=== PATIENT | female | born 1980 | race American Indian/Alaskan Native ===

== ENCOUNTER 2016-10-24 14:39 | Emergency (ER) | payer MEDICAID ==
[2016-10-24 15:18] VITALS: BP 106/69
== END 2016-10-24 18:53 | disposition left against medical advice (07) ==
LOC: ED 14:39
DX: R51 Headache (principal); Z53.21 Procedure and treatment not carried out due to patient leaving prior to being seen by health care provider; W06.XXXA Fall from bed, initial encounter; Y93.9 Activity, unspecified; Y92.9 Unspecified place or not applicable; Y99.9 Unspecified external cause status

== ENCOUNTER 2016-11-03 11:30 | Emergency (ER) | payer MEDICAID ==
--- NOTE | 2016-11-03 16:07 | Emergency Department Report ---
- General Chief Complaint: Upper Respiratory Infection Stated Complaint: SEVERE PAIN Time Seen by Provider: 11/03/16 15:25 Source: patient Mode of arrival: Ambulatory Limitations: No Limitations - History of Present Illness Initial Comments: Patient presents with head congestion, sore throat, headache. She states she has had these symptoms in the past and has had diagnosis of sinusitis. MD Complaint: rhinorrhea, nasal congestion, sinus pain -: Gradual, days(s) (3) Severity: moderate Severity scale (0 -10): 7 Improves With: nothing Context: sick contacts Associated Symptoms: headache, nasal congestion, sore throat, cough - Related Data Previous Rx's Medication Instructions Recorded Last Taken Type Amoxicillin/K Clav Tab [Augmentin 1 tab PO Q12HR #20 tab 11/03/16 Unknown Rx 875 mg] Allergies Allergy/AdvReac Type Severity Reaction Status Date / Time No Known Allergies Allergy Unverified 10/24/16 15:13 ED Review of Systems ROS: Stated complaint: SEVERE PAIN Other details as noted in HPI Constitutional: denies: chills, fever ENT: throat pain, congestion. denies: ear pain Respiratory: cough. denies: shortness of breath, wheezing Cardiovascular: denies: chest pain, palpitations Gastrointestinal: denies: abdominal pain, nausea, diarrhea Musculoskeletal: denies: back pain, joint swelling, arthralgia Skin: denies: rash, lesions Neurological: headache ED Past Medical Hx - Past Medical History Previous Medical History?: Yes Hx Asthma: Yes Additional medical history: blood clots - Surgical History Additional Surgical History: gallstones - Social History Smoking Status: Never Smoker Substance Use Type: None - Medications Home Medications: Home Medications Medication Instructions Recorded Confirmed Last Taken Type Amoxicillin/K Clav Tab [Augmentin 1 tab PO Q12HR #20 tab 11/03/16 Unknown Rx 875 mg] ED Physical Exam - General Limitations: No Limitations General appearance: alert, in no apparent distress - Head Head exam: Present: atraumatic, normocephalic, other (tender to palpation in maxillary and frontal sinus, mild swelling) - Eye Eye exam: Present: normal appearance, PERRL - ENT ENT exam: Present: mucous membranes moist, TM's normal bilaterally, other ( tender to palpate left ear canal) - Expanded ENT Exam Expanded Mouth exam: Present: normal external inspection Teeth exam: Present: normal inspection Throat exam: Positive: normal inspection - Neck Neck exam: Present: normal inspection - Respiratory Respiratory exam: Present: normal lung sounds bilaterally. Absent: respiratory distress - Cardiovascular Cardiovascular Exam: Present: regular rate, normal rhythm. Absent: systolic murmur, diastolic murmur, rubs, gallop - GI/Abdominal GI/Abdominal exam: Present: soft, normal bowel sounds - Neurological Exam Neurological exam: Present: alert, oriented X3, CN II-XII intact, normal gait. Absent: motor sensory deficit - Psychiatric Psychiatric exam: Present: normal affect, normal mood - Skin Skin exam: Present: warm, dry, intact, normal color. Absent: rash ED Course Vital Signs 11/03/16 11:59 Temperature 98.6 F Pulse Rate 101 H Respiratory 16 Rate Blood Pressure 132/93 O2 Sat by Pulse 99 Oximetry ED Medical Decision Making - Medical Decision Making Patient presents with sinusitis. Patient physical exam shows tenderness to maxillary and frontal sinuses. Her neurological exam is within normal. I will give Augmentin twice a day for 10 days, and ibuprofen 800 mg for headache. Critical Care Time: No Critical care attestation.: If time is entered above; I have spent that time in minutes in the direct care of this critically ill patient, excluding procedure time. ED Disposition Clinical Impression: Sinusitis Disposition: DISCHARGED TO HOME OR SELFCARE Is pt being admited?: No Does the pt Need Aspirin: No Condition: Stable Instructions: Sinusitis (ED) Prescriptions: Amoxicillin/K Clav Tab [Augmentin 875 mg] 1 tab PO Q12HR #20 tab Referrals: PRIMARY CARE, [Primary Care Provider] - 3-5 Days Forms: Work/School Release Form(ED) Time of Disposition: 16:13
[2016-11-03 16:29] VITALS: BP 133/83
== END 2016-11-03 16:28 | disposition home or self-care (01) ==
LOC: ED 11:30
DX: J32.9 Chronic sinusitis, unspecified (principal)
CPT/HCPCS: 99282